=== PATIENT | male | born 1935 | race Caucasian/White ===

== ENCOUNTER 2022-06-09 16:57 | Emergency (ER) | payer MEDICARE, OTHER ==
[~2022-06-09] VITALS: Ht 167.6 cm; Wt 52.7 kg
[2022-06-09 16:58] VITALS: TEMP 97.6
[2022-06-09 19:24] VITALS: BP 150/66; PULSE 58
== END 2022-06-09 19:28 | disposition home or self-care (01) ==
LOC: COL.ER 16:57
DX: S01.81XA Laceration without foreign body of other part of head, initial encounter (principal); S51.012A Laceration without foreign body of left elbow, initial encounter; Z28.310 Unvaccinated for COVID-19; W01.198A Fall on same level from slipping, tripping and stumbling with subsequent striking against other object, initial encounter; Y92.129 Unspecified place in nursing home as the place of occurrence of the external cause